=== PATIENT | male | born 1945 | race Caucasian/White ===

== ENCOUNTER 2020-07-31 06:12 | Outpatient (REF) | payer MEDICARE, SELFPAY ==
[2020-07-31 12:07] LABS: Alanine Aminotransferase 23 U/L (0-40); Albumin Level 4.3 g/dL (3.5-5.0); Alkaline Phosphatase 86 U/L (39-117); Anion Gap 13 (12-20); Aspartate Amino Transferase 18 U/L (5-37); Bilirubin Total 0.9 mg/dL (0.0-1.0); Blood Urea Nitrogen 15 mg/dL (9-16); Calcium 9.7 mg/dL (8.4-10.2); Carbon Dioxide 24 mmol/L (22-29); Chloride 106 mmol/L (96-108); Cholesterol 170 mg/dL; Estimated Glomerular Filt Rate > 60; Glucose Fasting 106 mg/dL (60-99); HDL Cholesterol 67 mg/dL; LDL Cholesterol Calculated 89 mg/dl; Sodium 139 mmol/L (135-145); Total Protein 6.5 g/dL (6.5-8.0); Triglycerides 70 mg/dL
[2020-07-31 12:26] LABS: Prostate Specific Antigen Scr < 0.05 ng/mL (<0.05-4.0); TSH reflex Free T4 4.13 mIU/mL (0.32-4.0)
[2020-07-31 13:02] LABS: Free T4 (Free Thyroxine) 1.03 ng/dL (0.71-1.85)
== END 2020-07-31 06:13 | disposition home or self-care (01) ==
LOC: HO.HMGCLDS 06:12
PROVIDERS: PCP Nurse Practitioner Family; Visit Provider Nurse Practitioner Family
DX: I10 Essential (primary) hypertension (principal); Z12.5 Encounter for screening for malignant neoplasm of prostate
CPT/HCPCS: 36415; 80053; 80061; 84153; 84439; 84443

== ENCOUNTER 2020-08-25 12:22 | Outpatient (REF) | payer MEDICARE, SELFPAY ==
--- NOTE | 2020-08-25 12:28 | XR_ITS ---
EXAMINATION: XR KNEE, RIGHT CLINICAL INFORMATION: Pain right knee. COMPARISON: None TECHNIQUE: Four views of the right knee. FINDINGS: Minimal loss of medial and patellofemoral compartment joint space. There is no loose bodies, bony erosive changes. There is minimal superior patellar spurring. There is mild suprapatellar joint effusion suspected. No visible acute fracture or dislocation. XR/XR knee RT 4V IMPRESSION: Early degenerative changes medial and patellofemoral compartment. No visible acute fracture or dislocation seen.
== END 2020-08-25 12:23 | disposition home or self-care (01) ==
LOC: HO.HMGCX 12:22
PROVIDERS: PCP Nurse Practitioner Family; Visit Provider Nurse Practitioner Family
DX: M25.561 Pain in right knee (principal)
CPT/HCPCS: 73564

== ENCOUNTER → 2021-07-01 09:03 | Outpatient (BNVA) | payer MEDICARE, SELFPAY | PROVIDERS: PCP Nurse Practitioner Family; Visit Provider Internal Medicine Cardiovascular Disease | DX: I35.1 Nonrheumatic aortic (valve) insufficiency (principal); I77.810 Thoracic aortic ectasia | CPT/HCPCS: 93005; 99212 ==

== ENCOUNTER → 2021-09-09 08:06 | Outpatient (REF) | payer MEDICARE, SELFPAY ==
--- NOTE | 2021-09-09 08:10 | CA_ITS ---
Transthoracic Echocardiogram Patient (Last, First, Middle): Wilberto Rice J Gender: Male Date of : 1945 Age: 76 Procedure Date: 09/09/2021 Procedure Type: Transthoracic Echocardiogram Location: OP Height: 172.72 cm Weight: 72.58 kg BSA: 1.86 m2 Heart Rate: bpm BP: 120 / 78 mmHg Gut Carrier: DSTyrese Referring MD: Cristiano Pittman MD Symptoms: I77.810 - Thoracic aortic ectasia Study Quality: Fair ECG Rhythm: Sinus Conclusions: - The left ventricular systolic function is normal. The calculated ejection fraction is 59% by biplane method. - There is mild dilatation of the ascending aorta measuring 3.90 cm and mild dilatation of the aortic arch measuring 3.80 cm. - There is trace (trivial) aortic valve regurgitation. - There is mild mitral valve regurgitation. Findings Left Ventricle Normal left ventricular cavity size. There is mildly increased left ventricular wall thickness. The left ventricular systolic function is normal. The calculated ejection fraction is 59% by biplane method. There is no evidence of regional wall motion abnormalities. Diastolic function is normal for age. Right Ventricle Normal right ventricular cavity size and systolic function. Atria Both atria are normal in size. Aortic Valve There is a normal trileaflet aortic valve. There is mild calcification of the aortic valve. There is no aortic valve stenosis. There is trace (trivial) aortic valve regurgitation. Mitral Valve The mitral valve appears normal. There is mild mitral valve regurgitation. There is no mitral valve stenosis. Pulmonic Valve The pulmonic valve was not well visualized. Tricuspid Valve There is trace tricuspid valve regurgitation. The pulmonary artery systolic pressure is normal. Great Vessels There is mild dilatation of the ascending aorta measuring 3.90 cm and mild dilatation of the aortic arch measuring 3.80 cm. Venous The inferior vena cava is normal in size and collapses greater than 50% with inspiration. Pericardium/Pleural There is no evidence of pericardial effusion. Prior Study Comparison No significant change compared to prior study dated: 05/26/2020. Measurements 2D Linear Measurements IVSd: 1.25 0.6-0.9/0.6-1.0 cm LVIDd: 4.47 3.9-5.3/4.2-5.9 cm LVIDd Index: 2.40 2.4-3.2/2.2-3.1 cm/m2 LVIDs: 2.85 2.0-3.6 cm LVPWd: 1.16 0.7-1.1 cm Ao Root: 3.00 2.1-3.5 cm LA Diam: 4.10 2.7-3.8/3.0-4.0 cm LAIDs Index: 2.20 1.5-2.3 cm/m2 LV Mass: 245.80 67-162/88-224 g LV Mass Index: 132.15 43-95/49-115 g/m2 LVOT Diam: 2.30 3.0+(-)1.3 cm 2D Systolic Function EF 4C: 57.10 >55% EF 2C: 60.80 >55% EF BiP: 58.90 >55% Mitral Valve MV Pk E: 0.33 MV PK A: 0.55 MV Decel Time: 252.00 E/A: 0.60 E'Lateral: 7.83 E'Medial: 8.65 E/E' Med: 3.80 E/E' Lat: 4.20 PHT: 74.00 MVA PHT: 2.97 Decel [place]: 1.31 Aortic Valve AoV Pk [place]: 1.55 AoV Pk Grad: 10.00 LVOT LVOT Pk [place]: 0.89 LVOT Mn [place]: 0.63 LVOT VTI: 0.20 LVOT Pk Grad: 3.00 LVOT Mn Grad: 2.00 LVOT Diam: 2.30 LVOT Area: 4.15 Diastolic Function MV Pk E: 0.33 MV Pk A: 0.55 E/A: 0.60 E'Medial: 8.65 E/E' Med: 3.80 E' Laterial: 7.83 E/E' Lat: 4.20 Right Ventricle TAPSE (mm): 1.89 Tricuspid Valve TR Pk [place]: 2.05 TR Pk Grad: 17.00 RA Press: 3.00 RVSP: 20.00 Great Vessels Aorta Ao Root-2D: 3.00 2.0-3.7 cm Ao Asc: 3.90 2.1-3.4 cm Ao Arch: 3.80 Updated in Other Vendor System with Status of Final Hussein Man MD electronically signed on 09/10/2021 3:28:58 PM with status of Final
== END ==
LOC: HO.CARD 08:06
PROVIDERS: PCP Hospitalist; Visit Provider Internal Medicine Cardiovascular Disease
DX: I77.810 Thoracic aortic ectasia (principal)
CPT/HCPCS: 93306

== ENCOUNTER → 2022-08-25 13:32 | Outpatient (BNVA) | payer MEDICARE, SELFPAY | PROVIDERS: Visit Provider Internal Medicine Cardiovascular Disease | DX: I35.1 Nonrheumatic aortic (valve) insufficiency (principal); I77.810 Thoracic aortic ectasia; Z79.899 Other long term (current) drug therapy | CPT/HCPCS: 93005; 99212 ==

== ENCOUNTER → 2023-07-28 07:56 | Outpatient (REF) | payer MEDICARE, SELFPAY ==
--- NOTE | 2023-07-28 07:59 | CA_ITS ---
Transthoracic Echocardiogram Patient (Last, First, Middle): Wilberto Rice J Gender: Male Date of : 1945 Age: 78 Procedure Date: 07/28/2023 Procedure Type: Transthoracic Echocardiogram Location: OP Height: 175.26 cm Weight: 72.58 kg BSA: 1.88 m2 Heart Rate: bpm BP: 118 / 60 mmHg Shade Cutter: Referring MD: Cristiano Pittman MD Jv Baseball Coach: Faizan Ruiz MD Symptoms: I77.810 - Thoracic aortic ectasia Study Quality: Fair but Adequate ECG Rhythm: Sinus Conclusions: - 1. Normal LV ejection fraction 60 65% with grade 1 diastolic dysfunction 2. Mildly dilated left atrium 3. Trivial aortic and mild mitral regurgitation 4. Mildly dilated ascending aorta at 4.1 cm 5. Normal RV systolic pressure 6. No pericardial effusion Findings Left Ventricle Normal left ventricular size, thickness, and systolic function. The visually estimated ejection fraction is between 60-65%. Spectral Doppler is indicative of an impaired relaxation filling pattern. E/E prime ratio is <8, consistent with normal filling pressures. Evidence suggests grade I (mild) diastolic dysfunction. Right Ventricle Normal right ventricular cavity size and systolic function. Atria The left atrium is mildly dilated. There is no evidence of interatrial shunt. The right atrium is normal in size. Aortic Valve Normal aortic valve structure and function. There is no aortic valve stenosis. There is trace (trivial) aortic valve regurgitation. Mitral Valve There is mild anterior and posterior mitral leaflet thickening. There is mild mitral valve regurgitation. There is no mitral valve stenosis. Pulmonic Valve The pulmonic valve is likely normal. Tricuspid Valve Normal tricuspid valve structure. There is mild tricuspid valve regurgitation. The right ventricular systolic pressure is normal. The right ventricular systolic pressure is 25 mmHg. There is no evidence of pulmonary hypertension. Great Vessels The pulmonary artery was not well visualized. There is mild dilatation of the ascending aorta measuring 4.00 cm. Venous The inferior vena cava is normal in size and collapses greater than 50% with inspiration. Pericardium/Pleural There is no evidence of pericardial effusion. Prior Study Comparison Changes noted compared to prior study dated: 09/09/2021. Ascending aorta is further mildly enlarged at 4.1 cm Measurements 2D Linear Measurements IVSd: 0.88 0.6-0.9/0.6-1.0 cm LVIDd: 3.97 3.9-5.3/4.2-5.9 cm LVIDd Index: 2.11 2.4-3.2/2.2-3.1 cm/m2 LVIDs: 2.35 2.0-3.6 cm LVPWd: 1.09 0.7-1.1 cm Ao Root: 3.60 2.1-3.5 cm LA Diam: 4.20 2.7-3.8/3.0-4.0 cm LAIDs Index: 2.23 1.5-2.3 cm/m2 LV Mass: 152.67 67-162/88-224 g LV Mass Index: 81.21 43-95/49-115 g/m2 LVOT Diam: 2.40 3.0+(-)1.3 cm Mitral Valve MV Pk E: 0.39 MV PK A: 0.48 MV Decel Time: 173.00 E/A: 0.80 E'Lateral: 8.38 E'Medial: 4.46 E/E' Med: 8.70 E/E' Lat: 4.70 PHT: 51.00 MVA PHT: 4.31 Decel [place]: 2.26 Aortic Valve AoV Pk [place]: 1.61 AoV Mn [place]: 1.09 AoV VTI: 0.30 AoV Pk Grad: 10.00 Aov Mn Grad: 5.00 LYNN Cont.VTI: 2.69 LVOT LVOT Pk [place]: 0.95 LVOT Mn [place]: 0.60 LVOT VTI: 0.18 LVOT Pk Grad: 4.00 LVOT Mn Grad: 2.00 LVOT Diam: 2.40 LVOT Area: 4.52 Diastolic Function MV Pk E: 0.39 MV Pk A: 0.48 E/A: 0.80 E'Medial: 4.46 E/E' Med: 8.70 E' Laterial: 8.38 E/E' Lat: 4.70 Right Ventricle TAPSE (mm): 17.00 TVS' [place]: 12.00 Tricuspid Valve TR Pk [place]: 2.35 TR Pk Grad: 22.00 RA Press: 3.00 RVSP: 25.00 Great Vessels Aorta Ao Root-2D: 3.60 2.0-3.7 cm Ao Asc: 4.00 2.1-3.4 cm Ao Arch: 4.40 Pulmonary Valve PV Pk [place]: 1.06 Peak PV Grad: 4.00 Updated in Other Vendor System with Status of Final Faizan Ruiz MD electronically signed on 07/28/2023 11:34:38 AM with status of Final
== END ==
LOC: HO.CARD 07:56
PROVIDERS: PCP Family Medicine; Visit Provider Internal Medicine Cardiovascular Disease
DX: I77.810 Thoracic aortic ectasia (principal)
CPT/HCPCS: 93306

== ENCOUNTER → 2023-07-28 07:59 | Outpatient (BNV) | payer MEDICARE, SELFPAY | PROVIDERS: PCP Family Medicine; Visit Provider Internal Medicine Cardiovascular Disease | DX: I34.0 Nonrheumatic mitral (valve) insufficiency (principal) | CPT/HCPCS: 93306 ==

== ENCOUNTER 2023-08-16 10:08 | Outpatient (AMB) | payer MEDICARE, SELFPAY ==
--- NOTE | 2023-08-16 10:21 | MHC.OFFVIS ---
Intake Vital Signs 08/16/23 10:29 Height 5 ft 10 in Weight 163 lb 2.273 oz BMI 23.4 BP 120/72 Blood Pressure Location Lt brachial Position Sitting Pulse 69 Intake Visit Reasons: 1 yr fu after echo Intake Note: 1 year follow-up after echo had ekg at [facility] feeling good Senior [employer] Required: No Allergies No Known Allergies [No Known Allergies*] Allergy (Verified 08/25/22 13:36) Medication List - Last Reconciled 08/16/23 by Cristiano Pittman MD aspirin 325 mg PO DAILY atorvastatin 20 mg PO DAILY hydrochlorothiazide 50 mg PO DAILY lisinopril 20 mg PO DAILY 90 days HPI HPI Comments History of Present Illness Details 77-year-old gentleman here for follow-up. He has background history of abnormal echocardiogram for which he was referred to us. Echocardiography previously has shown normal left ventricular systolic function with impaired relaxation pattern, mild aortic regurgitation and mildly dilated ascending aorta at 3.84 cm. He previously was doing vigorous exercise and weight training and was able to do sit-ups with 800 lb. He is saying he had right knee meniscal injury and was not able to exercise as much as before. No chest discomfort shortness of breath. Denying any dizziness or lightheadedness. He had repeat echocardiography in August 2021. This showed similar size of the ascending aorta as well as trace to mild aortic regurgitation He has been doing well from cardiovascular point of view. He is exercising regularly with the exception of doing sit-ups because of meniscal injury. Overall clinically stable and has no exertional symptoms. 08/16/23: He returns for follow-up. He continues to be active without any exertional symptoms. He had right hip replacement in May. At that time ECG was performed which showed sinus bradycardia 49 beats per minute, normal axis, right bundle-branch block, QTC 419 milliseconds. This was performed at [facility]. He continues to be active and has no exertional symptoms. His echocardiography has shown trivial aortic and mild mitral regurgitation. Mild dilation of ascending aorta 4 cm. Last echocardiography was 2 years ago when ascending aorta was 3.84 cm. [facility] Medical History (Updated 07/01/21 @ 09:28 by Cristiano Pittman MD) MCL sprain of right knee Lower back pain Hx of malignant neoplasm of prostate Surgical History H/O rotator cuff surgery History of prostate surgery History of rotator cuff surgery Family History Father No problems noted. Mother Colon cancer Father No problems noted. Mother Colon cancer Social History Alcohol intake: current Patient Tobacco Use Status: Never used Tobacco Review of Systems Const Denies chills, Denies fatigue, Denies fever(s), Denies frequent falls, Denies weakness, Denies weight gain and Denies weight loss ENT Denies dizziness Card Denies chest pain, Denies leg edema, Denies lightheadedness, Denies palpitations, Denies dyspnea, Denies dyspnea on exertion, Denies orthopnea and Denies other (loss of consciousness) Resp Denies cough, Denies dyspnea and Denies dyspnea on exertion GI Denies hematochezia and Denies change in stool character Musc Denies abnormal gait, Denies muscle weakness, Denies numbness, Denies radiating pain into limb and Denies tingling Neuro Denies abnormal gait, Denies dizziness, Denies frequent falls, Denies numbness, Denies tingling and Denies weakness Endo Denies fatigue and Denies palpitations Physical Exam Vital Signs: Last Vital Signs Pulse 69 08/16/23 10:29 BP 120/72 08/16/23 10:29 BMI result Body Mass Index 23.4 GENERAL APPEARANCE: in no acute distress, pleasant. NECK: no carotid bruit, no jugular venous distention. SKIN: no suspicious lesions, warm and dry. HEART: Soft systolic murmur aortic area, regular rate and rhythm. LUNGS: clear to auscultation bilaterally. ABDOMEN: soft, nontender. EXTREMITIES: no edema. PERIPHERAL PULSES: equal. NEUROLOGIC: No gross deficits, AAO X 3 Assessment & Plan Assessment & Plan (1) Mild dilation of ascending aorta: Code(s): I77.810 - Thoracic aortic ectasia (2) Aortic regurgitation: Code(s): I35.1 - Nonrheumatic aortic (valve) insufficiency Plan Pleasant 78-year-old gentleman is here for follow-up. He has background of hypertension previous blood pressure is well controlled with lisinopril and hydrochlorothiazide. He has mild dilation of ascending aorta at 4 cm. He has trivial AI and mild mitral valve regurgitation. Clinically stable and has no exertional symptoms. I have reassured him currently. Will continue same medications for now. He will see us back in 1 year. Thank you for allowing me to participate in the care of your patient. Please feel free to contact me if you have any questions. Coding Level of Care Code Est Pt Level 3 (22944) Diagnoses Mild dilation of ascending aorta I77.810 Aortic regurgitation I35.1
[2023-08-16 10:29] VITALS: BP 120/72; PULSE 69; BMI 23.4
== END 2023-08-16 11:02 | disposition home or self-care (01) ==
PROVIDERS: PCP Family Medicine; Visit Provider Internal Medicine Cardiovascular Disease
DX: I77.810 Thoracic aortic ectasia (principal); I35.1 Nonrheumatic aortic (valve) insufficiency
CPT/HCPCS: 99213

== ENCOUNTER → 2023-08-16 10:08 | Outpatient (BNVA) | payer MEDICARE, SELFPAY | PROVIDERS: PCP Family Medicine; Visit Provider Internal Medicine Cardiovascular Disease | DX: I77.810 Thoracic aortic ectasia (principal); I35.1 Nonrheumatic aortic (valve) insufficiency | CPT/HCPCS: 99212 ==